=== PATIENT | female | born 1975 | race Caucasian/White ===

== ENCOUNTER → 2016-09-29 | Outpatient (CLI) | payer OTHER ==
--- NOTE | 2016-09-30 05:19 | REP ---
Clinical: Abnormal liver function tests. Technique: Real time martinez scale ultrasound examination using curved array transducer along with color Doppler evaluation of the hepatic vasculature. Findings: By ultrasound examination, the liver and spleen appear upper limits of normal in size, normal in echogenicity, and without focal hepatic or splenic lesions identified. The pancreas is incompletely evaluated due to interposed bowel gas but visualized portions appear normal. The gallbladder demonstrates small amount of layering sludge/gravel without wall thickening or pericholecystic fluid and no sonographic Alfred's sign to suggest acute cholecystitis. The common bile duct is mildly dilated measuring 7.6 mm diameter. The bilateral kidneys suggest partial duplication but are otherwise normal in reniform shape and appearance without hydronephrosis, nephrolithiasis or cystic lesion. The aorta demonstrates atherosclerotic changes without aneurysm. Right kidney measures 12.8 x 5.6 x 4.3 cm. Left kidney measures 12.7 x 6.6 x 5.1 cm. Abdominal aorta measures 2.1 cm maximal diameter. Color Doppler interrogation demonstrates normal flow direction, wave patterns, velocities through the portal veins, hepatic veins, and hepatic artery. Main portal vein (15 mm diameter) 39.8 cm/sec. Right portal vein 25.8 cm/sec. Middle portal vein 24.5 cm/sec Left portal vein 26.1 cm/sec. Impression: 1. Liver and spleen are upper limits of normal in size but without focal splenic or hepatic lesion identified. 2. Gallbladder demonstrates small amount of layering sludge and there is evidence to suggest common bile duct is minimally dilated, but there is no sonographic evidence to support acute cholecystitis. 3. Hepatic vasculature is normal. Signed by David Jones MD 09/30/2016 05:10 A
== END ==
LOC: M RAD 08:16
PROVIDERS: ATTEND Physician Assistant
DX: R74.8 Abnormal levels of other serum enzymes (principal)

== ENCOUNTER → 2021-04-18 | Outpatient (CLI) | payer OTHER ==
[~2021-04-18] MED LIST: ATOR40TA75 PO; BIMA01SOL OU; CALC-211 PO; COMB0.2S OP; GABA-282 PO; INSUN SC; LEVO125T4 PO; MAGN400T33 PO; METF10004 PO; MULT1TAB16 PO; OMEP-221 PO; ULTR5TAB PO; VITA200016 PO; VITA500T40 PO
== END ==
LOC: M LABSMTC 09:19
PROVIDERS: ATTEND Anesthesiology
DX: Z01.812 Encounter for preprocedural laboratory examination (principal); Z20.822 Contact with and (suspected) exposure to COVID-19

== ENCOUNTER 2021-04-23 06:03 | Day surgery (SDC) | payer OTHER ==
[~2021-04-23] VITALS: Ht 154.9 cm; Wt 97.5 kg
[~2021-04-23 06:03] MED LIST changes: +LR 1,000 ML IV ONE; +ceFAZolin SOD 2 GM in IV 1 EA IV ONE
[2021-04-23] MEDS ORDERED: BUPIVACAINE HCL 0.25% 10ML VIAL As Ordered ONE ×2 (07:08→09:28)
[2021-04-23] MEDS ORDERED: BUPIVACAINE LIPOSOME/PF 1.3% 20ML VIAL (13.3MG/ML)(EXPAREL)(C9290 PER1MG) As Ordered ONE ×2 (07:08→09:28)
[2021-04-23] MEDS ORDERED: BUPIVACAINE/EPIN 0.25% 30 ML VIAL As Ordered ONE (07:08)
[2021-04-23] MEDS ORDERED: ONDANSETRON 4MG/2ML VIAL As Ordered ONE (07:56)
[2021-04-23] MEDS ORDERED: ACETAMINOPHEN 1000MG 100ML IV BTL (OFIRMEV) (J0131 PER 10MG) As Ordered ONE (07:56)
[2021-04-23] MEDS ORDERED: dexameTHASONE 4 MG/ML 1ML VIAL (J1100 PER 1MG) As Ordered ONE (07:56)
[2021-04-23] MEDS ORDERED: fentaNYL 250 MCG/5 ML INJECTION (J3010) As Ordered ONE (07:56)
[2021-04-23] MEDS ORDERED: MIDAZOLAM INJ 2MG/2ML VIAL (J2250 PER 1MG) As Ordered ONE (07:56)
[2021-04-23] MEDS ORDERED: METOCLOPRAMIDE INJ 10MG/2ML VIAL (J2765 PER 1) As Ordered ONE (07:56)
[2021-04-23] MEDS ORDERED: KETOROLAC 60MG 2ML VIAL As Ordered ONE (07:56)
[2021-04-23] MEDS ORDERED: LIDOCAINE 2% 100MG/5ML SDV (FOR ANES.) As Ordered ONE (07:56)
[2021-04-23] MEDS ORDERED: PHENYLephrine 500MCG 5ML (100MCG/ML) SYRINGE As Ordered ONE (07:56)
[2021-04-23] MEDS ORDERED: propofoL 200 MG/20 ML VIAL As Ordered ONE (07:56)
[2021-04-23] MEDS ORDERED: SUGAMMADEX SODIUM 500 MG/5 ML VIAL (BRIDION) As Ordered ONE (07:56)
[2021-04-23] MEDS ORDERED: ROCURONIUM BROMIDE 50 MG/5 ML VIAL As Ordered ONE ×2 (07:56→08:38)
[2021-04-23] MEDS ORDERED: SCOPOLAMINE 1MG TRANSDERMAL PATCH As Ordered ONE (07:57)
[2021-04-23] MEDS ORDERED: ceFAZolin 1GM VIAL (J0690 PER 500MG) As Ordered ONE (08:59)
[2021-04-23] MEDS ORDERED: DESFLURANE 240 ML INHALANT As Ordered ONE (09:47)
[2021-04-23] MEDS ORDERED: ONDANSETRON 4MG/2ML VIAL IV PRN (10:35)
[2021-04-23] MEDS ORDERED: LR 1,000 ML IV SCH (10:35)
[2021-04-23] MEDS ORDERED: fentaNYL 100 MCG/2 ML INJECTION (J3010) IV PRN (10:35)
[2021-04-23] MEDS ORDERED: oxyCODONE 5MG TAB PO PRN (10:35)
[2021-04-23] MEDS ORDERED: traMADol 50 MG TAB PO PRN (10:45)
[2021-04-23] MEDS ORDERED: NS 1,000 ML IV SCH (10:45)
[2021-04-23] MEDS ORDERED: HumaLOG INSULIN (NovoLOG) PER UNIT SC ONE (10:55)
[2021-04-23 12:45] VITALS: BP 117/55
--- NOTE | 2021-04-23 13:09 | RO ---
OPERATIVE NOTE DATE OF OPERATION: 04/23/2021 PREOPERATIVE DIAGNOSIS: History of cholecystitis and umbilical hernia. POSTOPERATIVE DIAGNOSIS: 1. Cholecystitis. 2. Prior trocar site hernia at the umbilicus. PROCEDURE: 1. Laparoscopic cholecystectomy. 2. Open incisional hernia repair at the umbilicus. SURGEON: Romain Wakefield M.D. ANESTHESIA: General endotracheal. ESTIMATED BLOOD LOSS: Minimal. FLUIDS: Crystalloid. DISPOSITION: Patient was taken to the Recovery Room awake, alert and hemodynamically stable. BRIEF OPERATIVE SUMMARY: The patient was taken to the Operating Room, was given general anesthesia. After adequate anesthesia and preoperative antibiotics were given, the patient was prepped and draped in the usual sterile fashion. Next, I could palpate the fullness around the right side of the umbilicus and however with her morbid obesity it was very difficult to specifically isolate the exact area where the fascial defect was, thus a right subcostal incision was made with a skin knife and the Veress needle placed into the abdominal cavity and insufflated with 15 mm of pressure. A dilating 5 mm trocar was placed and under direct visualization and epigastric 5 mm trocar was placed. There was no significant adhesions except at the periumbilical incisional hernia present and there was omentum within this. I was able to reduce this to some extent but mostly this had omentum incarcerated within this and I was able to transect this at the level of the fascia. Once this was transected, using a finer needle, I was able to directly find the exact fascial defect on the skin and a elsi-umbilical incision was made with the skin knife, electrocautery was used to cut through dermis, underlying subcutaneous tissue down to the hernia sac itself and there was omentum within this hernia sac that I was able to remove and fascial defect was found at this time and then a 10 mm trocar fit relatively snugly through this opening. Once this was placed, an additional right subcostal 5 mm trocar was placed. The gallbladder had some adhesions on it which were taken down with hook cautery. The gallbladder was grasped but because of the patient's significantly enlarged liver and obesity, I needed to re-grab the gallbladder almost midway down and then help retract this. All the adhesions were taken down to where the neck was and eventually after reverse Trendelenburg and left side down position, the dissection continued. This was slow but meticulous and eventually after isolating out the cystic duct as well as the cystic artery and seeing critical view of safety I was able to take the cystic artery proximally and transect distally with cautery. Once I did this, this helped mobilize the neck of the gallbladder even better and then I was able to bring that medially and laterally and evaluate both sides of this. I was able to see the common bile duct very significantly more medially, probably 2 or 3 cm away from where I was dissecting at this time and dissection continued down along the cystic duct where it had a relatively fluted neck of the gallbladder that tapered down slowly but eventually it tapered down nicely to the cystic duct area and once the junction of the cystic duct gallbladder neck junction was appreciated, the cystic duct and gallbladder neck junction was nicely appreciated at this time and while viewing this, Anesthesia was reacting to something underneath the sterile drapes occurring and they were quickly advancing towards the patient. At this point, the patient had her shoulders and head off the side of the bed, I was able to put my hip up against her to slow her descent and Anesthesia had grabbed her shoulders and her head area and the patient was then placed on the floor and her legs were unstrapped from her buckle around her legs and those were brought down as well. Anesthesia made sure she was continued with intubation and good breath sounds and once they were comfortable with her overall position, then multiple individuals brought her back up to the bed and placed her on the bed. The 10 mm trocar had come out and during this and all instruments had been brought out when this occurred. The other three trocars were in place still. Next, after getting new instruments and then prepping and draping again, and getting additional dose of antibiotics, the abdomen was insufflated and the 10 mm trocar was placed back, replaced under direct visualization. The patient was placed in reverse Trendelenburg position and left side down and the clips were placed around the junction of the cystic duct/gallbladder neck junction and the gallbladder was taken from the gallbladder bed using electrocautery, placed in an Endocatch bag. The right upper quadrant was copiously irrigated until clear. The operative field was clear, dry without any drainage. Next, the umbilicus site was such that I was not sure if I would be able to bring out the gallbladder through this small fascial defect and thus the site at the gallbladder was opened up slightly to allow the gallbladder to be removed adequately and the fascial defect still fit my finger and was maybe 10 to 12 mm in size. Thus, a [id number] 0 Ethibond sutures were used to close the fascial defect and given the intraoperative re-prepping and draping, I felt that this did increase the potential for infection and I did not want to place a mesh at this time. The abdomen was re-insufflated and indeed the defect was closed, however given the patient's size I felt that an additional [id number] Ethibond using a Aakash-Taveras would also reinforce the repair that I just performed and this was performed without difficulty and then Exparel was placed circumferentially around the repair site. All trocar sites received Exparel and all sites were copiously irrigated with irrigation until clear and then the subcutaneous tissue was brought together with 2-0 Vicryl at the umbilicus, 3-0 Vicryl was used to approximate the dermis and all incisions were closed with 4-0 Vicryl. Steri-Strips and a dry sterile dressing were applied. The patient was awakened, extubated and brought to the Recovery Room awake and alert, and hemodynamically stable. Sponge and needle counts were correct x2.
== END 2021-04-23 12:45 | disposition home or self-care (01) ==
LOC: M SDC 06:03
PROVIDERS: ATTEND Surgery
DX: K43.0 Incisional hernia with obstruction, without gangrene (principal); K80.20 Calculus of gallbladder without cholecystitis without obstruction; T81.89XA Other complications of procedures, not elsewhere classified, initial encounter; W17.89XA Other fall from one level to another, initial encounter; Y92.234 Operating room of hospital as the place of occurrence of the external cause; E11.9 Type 2 diabetes mellitus without complications; E78.00 Pure hypercholesterolemia, unspecified; J45.909 Unspecified asthma, uncomplicated; E03.9 Hypothyroidism, unspecified; Z97.5 Presence of (intrauterine) contraceptive device; K76.9 Liver disease, unspecified; E66.9 Obesity, unspecified; Z68.41 Body mass index [BMI] 40.0-44.9, adult; Z98.84 Bariatric surgery status; Z88.8 Allergy status to other drugs, medicaments and biological substances; Z79.899 Other long term (current) drug therapy; Z79.4 Long term (current) use of insulin; Z79.84 Long term (current) use of oral hypoglycemic drugs
CPT/HCPCS: 47562; 49561; 81025; 88304; C9290; J0131; J0690; J1100; J1885; J2250; J2370; J2405; J2765; J3010